=== PATIENT | female | born 1995 | race Hispanic/Latino ===

== ENCOUNTER 2017-06-05 21:57 | Emergency (ER) | payer OTHER, MEDICAID ==
[2017-06-06 00:25] LABS: Bacteria,Urine 1+ /HPF (Negative); Bilirubin,Urine NEG (Negative); Blood,Urine SM (Negative); Ketones,Urine NEG (Negative); Leukocyte Esterase,Urine NEG (Negative); Nitrite,Urine NEG (Negative); Protein,Urine <15 mg/dL mg/dL (Negative); Urobilinogen,Urine < 2.0 mg/dL (<2.0); WBC,Urine < 1.0 /HPF (0.0-6.0)
--- NOTE | 2017-06-06 01:16 | XRay Report ---
FINAL REPORT PROCEDURE: XR SPINE CERVICAL 2-3V TECHNIQUE: Cervical spine radiographs, AP, lateral, and open-mouth odontoid views. CPT 88971 HISTORY: NECK PAIN....upper neck pain/em COMPARISON: No prior studies are available for comparison. FINDINGS: Prevertebral soft tissues: Normal . Alignment: Normal . Vertebral body heights/Disk spaces: Normal . Fracture(s): None . Facets: Normal . Bone mineralization: Normal . IMPRESSION: Normal Examination
[2017-06-06] MEDS ORDERED: TYLENOL PO ONE (03:55)
[2017-06-06] MEDS ORDERED: TYLENOL ONE (04:00)
[2017-06-06] MEDS ORDERED: TORADOL IM ONE (07:58)
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
[2017-06-06 08:49] VITALS: BP 109/67
== END 2017-06-06 08:50 | disposition home or self-care (01) ==
LOC: ED 21:57
DX: M54.5 Low back pain (principal); M54.2 Cervicalgia; M79.1 Myalgia; M62.830 Muscle spasm of back
CPT/HCPCS: 36415; 72040; 81001; 84703; 96372; 99284; J1885